=== PATIENT | male | born 1990 | race American Indian/Alaskan Native ===

== ENCOUNTER 2018-05-19 21:12 | Emergency (ER) | payer SELFPAY ==
--- NOTE | 2018-05-19 23:31 | C.PDOC ---
History Of Present Illness 28-year-old male presents to the ED for evaluation of bilateral feet pain. Patient states that he is homeless and he is often on his feet. Patient also reports history of bunion, and states that his pain is mostly around those areas. He denies direct trauma/injury to the area or extremity numbness/weakness. Time Seen by Provider: 05/19/18 22:05 Chief Complaint (Nursing): Lower Extremity Problem/Injury History Per: Patient History/Exam Limitations: no limitations Onset/Duration Of Symptoms: Days Current Symptoms Are (Timing): Still Present Additional History Per: Patient - Ankle/Foot Description Of Injury: denies: Fell, Struck With Object, Struck Against Object, Twisted Past Medical History Reviewed: Historical Data, Nursing Documentation, Vital Signs Vital Signs: Last Vital Signs Temp 98 F 05/19/18 21:30 Pulse 74 05/19/18 21:30 Resp 20 05/19/18 21:30 BP 139/80 05/19/18 21:30 Pulse Ox 98 05/19/18 21:30 - Medical History PMH: No Chronic Diseases Surgical History: No Surg Hx Family History: States: Unknown Family Hx - Social History Hx Alcohol Use: Yes Hx Substance Use: Yes - Immunization History Hx Tetanus Toxoid Vaccination: No Hx Influenza Vaccination: No Hx Pneumococcal Vaccination: No Review Of Systems Musculoskeletal: Positive for: Foot Pain (bilateral ) Neurological: Negative for: Weakness, Numbness Physical Exam - Physical Exam Appears: Non-toxic, No Acute Distress Skin: Normal Color, Warm, Dry, No Ecchymosis, No Other (erythema to bilateral feet ) Extremity: Normal ROM, Tenderness (over bunions, bilaterally ), Capillary Refill (less than 2 seconds ), No Deformity, No Swelling Neurological/Psych: Oriented x3, Normal Speech, Normal Cognition ED Course And Treatment O2 Sat by Pulse Oximetry: 98 (on RA) Pulse Ox Interpretation: Normal Progress Note: Bilateral foot XR ordered and reviewed. Patient was given food to eat, upon request. Patient also given new, clean clothes and new shoes. Patient is resting comfortably, and stable for discharge. Disposition - Disposition Referrals: [facility] [Outside] Disposition: HOME/ ROUTINE Disposition Time: 23:29 Condition: STABLE Additional Instructions: Follow up with your PMD / clinic within 1-2 days. Return to ED if feel worse. Prescriptions: Ibuprofen [Motrin Tab] 400 mg PO Q8 #30 tab Instructions: Ibuprofen Forms: [facility] (Serbian) - Clinical Impression Clinical Impression: Foot pain, bilateral, Homeless single person - PA / [employer] / Resident Statement MD/DO has reviewed & agrees with the documentation as recorded. - Scribe Statement The provider has reviewed the documentation as recorded by the Scribe (Oksana Steinberg) All medical record entries made by the Scribe were at my direction and pers onally dictated by me. I have reviewed the chart and agree that the record accurately reflects my personal performance of the history, physical exam, medical decision making, and the department course for this patient. I have also personally directed, reviewed, and agree with the discharge instructions and disposition.
[2018-05-19 23:46] VITALS: BP 124/77; PULSE 72; RESP 18; TEMP 98.2
[2018-05-20 00:36] VITALS: O2SAT 98
--- NOTE | 2018-05-20 09:03 | RAD ---
Bilateral feet five views History: Pain. Comparison: None available. Findings: Somewhat limited study given large field of view. Right foot: Moderate hallux valgus deformity. No evidence of acute displaced fracture dislocation. Left foot: Moderate hallux valgus deformity. No evidence of acute displaced fracture or dislocation. Impression: Moderate bilateral hallux valgus deformities. If pain persists, consider correlation with MRI.
== END 2018-05-19 23:46 | disposition home or self-care (01) ==
LOC: C.ER 21:12
DX: M79.672 Pain in left foot (principal); M79.671 Pain in right foot; Z59.0 Homelessness